=== PATIENT | male | born 2005 | race Hispanic/Latino ===

== ENCOUNTER 2024-03-05 02:11 | Emergency (ER) | payer SELFPAY ==
[~2024-03-05] VITALS: Ht 149.9 cm; Wt 60.0 kg
[~2024-03-05 02:11] MED LIST: AMOXICILLIN500 MG PO
[2024-03-05 02:25] VITALS: BP 133/78
[2024-03-05] MEDS ORDERED: KETOROLAC TROMETHAMINE 30 MG/ML SDV IM ONE (02:25)
[2024-03-05 02:30] VITALS: BP 136/70
[2024-03-05] MEDS ORDERED: ACETAMINOPHEN 500 MG TAB PO ONE (02:30)
[2024-03-05 02:45] VITALS: BP 127/69
[2024-03-05 03:00] VITALS: BP 116/75
[2024-03-05 03:13] LABS: BASO% 0.4 % (0-3); EOS% 0.5 % (0-8); HEMATOCRIT 43.6 % (39.0-50.0); HEMOGLOBIN 15.2 g/dl (14.0-18.0); IMMATURE GRANULOCYTES 0.6 % (0.0-5.0); LYMPH% 25.6 % (15-41); MEAN CELL VOLUME 88.1 fL CALC (80.0-100.0); MEAN CORPUSCULAR HGB 30.7 pG CALC (26.0-32.0); MEAN CORPUSCULAR HGB CONC 34.9 g/dL CAL (32.0-36.0); MONO% 6.3 % (2-13); NEUT# 5.52 thou/uL (1.82-7.42); NEUT% 66.6 % (42-76); RED BLOOD COUNT 4.95 mill/uL (4.70-6.10); RED CELL DISTRI WIDTH 12.5 % (11.5-15.5)
[2024-03-05 03:24] LABS: ALBUMIN 4.5 g/dL (3.2-5.0); BILIRUBIN, TOTAL 0.2 mg/dL (0.2-1.3); CREATININE 0.9 mg/dL (0.7-1.3); TOTAL PROTEIN 7.5 g/dL (6.3-8.2)
[2024-03-05 03:25] LABS: POTASSIUM 3.4 mmol/l (3.5-5.1)
[2024-03-05 04:03] LABS: URINE BILIRUBIN - DIPSTICK Negative (NEGATIVE); URINE BLOOD DIPSTICK Negative (NEGATIVE); URINE GLUCOSE - DIPSTICK Negative (NEGATIVE); URINE KETONE Negative (NEGATIVE); URINE LEUK ESTERASE Negative (NEGATIVE); URINE NITRITE - DIPSTICK Negative (Negative); URINE PROTEIN - DIPSTICK Negative (NEG-TRACE); URINE SPECIFIC GRAVITY 1.015; URINE UROBILINOGEN - DIPSTICK 0.2 E.U./dL (0.2)
[2024-03-05 04:07] LABS: URINE COLOR Yellow
[2024-03-05 05:09] VITALS: BP 116/75
== END 2024-03-05 05:14 | disposition home or self-care (01) | DRG 730 ==
LOC: ED 02:11
PROVIDERS: Family Medicine
DX: N50.812 Left testicular pain (principal); N50.811 Right testicular pain